=== PATIENT | female | born 1965 | race Caucasian/White ===

== ENCOUNTER 2019-09-23 13:06 | Outpatient (REF) | payer BC, SELFPAY ==
[2019-09-23 22:15] LABS: HCT 39.8 % (36.0-46.0); Mean Corp. HGB Concentration 32.7 g/dL (32.0-36.0); Mean Corpuscular Volume 82.6 fL (80-95); Mean Platelet Volume 10.4 fL (8.0-11.0); Platelet Count 408 x1000/uL (130-400); RBC 4.82 m/cumm (4.00-5.20); RBC Distribution Width 15.4 % (11.7-14.6); White Blood Cell Count 9.43 k/cumm (4.4-10.8)
[2019-09-23 23:16] LABS: Calculated LDL 106 mg/dL (<100); Cholesterol 192 mg/dL (<200); Folate > 20.0 ng/mL (8.6-20.0); HDL Cholesterol 64 mg/dL (40-60); Triglyceride 114 mg/dL (<150); Vitamin B12 691 pg/mL (193-986)
[2019-09-25 04:53] LABS: Vitamin D 25 Total 100.6 ng/ml (30-100)
== END 2019-09-23 13:26 ==
LOC: NCHCN 13:06
PROVIDERS: Visit Provider Nurse Practitioner Family
DX: G60.9 Hereditary and idiopathic neuropathy, unspecified (principal)
CPT/HCPCS: 80061; 82306; 85027; 82607; 82746

== ENCOUNTER 2020-03-02 21:23 | Outpatient (REF) | payer BC, SELFPAY ==
[2020-03-02 22:08] LABS: HGB 12.4 g/dL (12.0-15.5); Mean Corp. HGB Concentration 31.8 g/dL (32.0-36.0); Mean Corpuscular Hemoglobin 27.1 pg (27.0-33.0); Mean Corpuscular Volume 85.3 fL (80-95); Mean Platelet Volume 10.5 fL (8.0-11.0); Platelet Count 353 x1000/uL (130-400); RBC 4.57 m/cumm (4.00-5.20); RBC Distribution Width 14.6 % (11.7-14.6); White Blood Cell Count 8.55 k/cumm (4.4-10.8)
[2020-03-02 22:20] LABS: ALT 34 U/L (14-59); AST 29 U/L (15-37); Albumin 3.7 g/dL (3.4-5.0); Alkaline Phosphatase 79 U/L (46-116); BUN 21 mg/dL (7-18); Bilirubin, Total 0.5 mg/dL (0.2-1.0); CREATININE 0.77 mg/dL (0.55-1.02); Calcium 9.3 mg/dL (8.5-10.1); Chloride 103 mmol/L (98-107); Glucose 115 mg/dL (74-106); Potassium 4.2 mmol/L (3.5-5.1); Sodium 140 mmol/L (136-145); TSH 2.27 uIU/mL (0.36-3.74); Total Protein 7.2 g/dL (6.4-8.2)
[2020-03-02 22:51] LABS: Iron 74 ug/dL (50-170)
[2020-03-02 22:56] LABS: Hemoglobin A1C 6.9 % (3.8-5.6)
[2020-03-02 23:18] LABS: Ferritin 21 ng/mL (8-252); Vitamin B12 684 pg/mL (193-986)
[2020-03-04 05:49] LABS: Vitamin D 25 Total 39.5 ng/ml (30-100)
[2020-03-04 09:28] LABS: Parathyroid Hormone,Intact 20 pg/mL (19-88)
== END 2020-03-02 21:43 ==
LOC: NCHCN 21:23
PROVIDERS: Visit Provider Family Medicine
DX: E03.9 Hypothyroidism, unspecified (principal); F31.9 Bipolar disorder, unspecified; E11.9 Type 2 diabetes mellitus without complications; E55.9 Vitamin D deficiency, unspecified; E66.01 Morbid (severe) obesity due to excess calories; Z98.84 Bariatric surgery status
CPT/HCPCS: 80053; 82306; 85027; 82607; 82728; 83036; 83540; 83970; 84443